=== PATIENT | female | born 1970 ===

== ENCOUNTER 2022-09-01 10:00 | Inpatient (IN) | payer OTHER ==
[~2022-09-01] VITALS: Ht 154.9 cm; Wt 83.9 kg
[2022-09-08] MEDS ORDERED: RISPERIDONE0.5 MG (08:48)
[2022-09-08] MEDS ORDERED: FLONASE16 GM (08:48)
[2022-09-08] MEDS ORDERED: CLONAZEPAM1 MG (08:48)
[2022-09-08] MEDS ORDERED: AZELASTINE137 MCG/0. (08:48)
[2022-09-08] MEDS ORDERED: VENLAFAXINE HCL75 M1 (08:48)
[2022-09-08] MEDS ORDERED: CETIRIZINE HCL10 MG (08:48)
[2022-09-08] MEDS ORDERED: NABUMETONE500 MG (08:49)
[2022-09-08] MEDS ORDERED: VITAMIN D3250 MCG (08:49)
[2022-09-08] MEDS ORDERED: LORATADINE10 MG (08:49)
[2022-09-08] MEDS ORDERED: VITAMIN B-121000 MC2 (08:49)
[2022-09-08] MEDS ORDERED: FAMOTIDINE20 MG (08:49)
[2022-09-08] MEDS ORDERED: GABAPENTIN800 M1 (08:49)
== END 2022-09-08 12:19 | disposition home or self-care (01) | DRG 741 ==
LOC: OB/GYN 09-07 06:24 → O/R 09-07 06:24 → SURG 09-07 10:00 → OB/GYN 09-07 15:46 → SURG 09-07 20:30 → OB/GYN 09-08 12:19
PROVIDERS: ADMIT Obstetrics & Gynecology Gynecologic Oncology; ATTEND Obstetrics & Gynecology Gynecologic Oncology
PROC: 0UT74ZZ Resection of Bilateral Fallopian Tubes, Percutaneous Endoscopic Approach (ICD-10-PCS; 2022-09-07)
PROC: 0UT24ZZ Resection of Bilateral Ovaries, Percutaneous Endoscopic Approach (ICD-10-PCS; 2022-09-07)
PROC: 07BC4ZZ Excision of Pelvis Lymphatic, Percutaneous Endoscopic Approach (ICD-10-PCS; 2022-09-07)
PROC: 0DNW4ZZ Release Peritoneum, Percutaneous Endoscopic Approach (ICD-10-PCS; 2022-09-07)
PROC: 0UT94ZZ Resection of Uterus, Percutaneous Endoscopic Approach (ICD-10-PCS; principal; 2022-09-07 20:30)
DX: C54.1 Malignant neoplasm of endometrium (principal); D25.1 Intramural leiomyoma of uterus; Z20.822 Contact with and (suspected) exposure to COVID-19